=== PATIENT | male | born 1960 | race Two or more races ===

== ENCOUNTER → 2023-12-16 | Outpatient (REF) | payer OTHER | LOC: M SMT 12:19 | PROVIDERS: ATTEND Urology | DX: C61 Malignant neoplasm of prostate (principal); R97.20 Elevated prostate specific antigen [PSA]; N42.89 Other specified disorders of prostate; Z88.8 Allergy status to other drugs, medicaments and biological substances; Z79.899 Other long term (current) drug therapy; Z90.81 Acquired absence of spleen; Z80.42 Family history of malignant neoplasm of prostate ==

== ENCOUNTER 2024-06-09 10:03 | Day surgery (SDC) | payer MEDICARE, OTHER ==
[~2024-06-09] VITALS: Ht 167.6 cm; Wt 85.3 kg
[2024-06-09] VITALS (7 sets, daily range): BP systolic 120–133; BP diastolic 74–84; TEMP 97.8–98.8; O2SAT 94–98
[~2024-06-09 10:03] MED LIST: ACETAMINOPHEN 1000MG/100ML IV BAG As Ordered ONE; AMLO10TA PO; COLA100C5 PO; HYDROmorphone HCL 2MG/ML 1ML VIAL As Ordered ONE; IBUP-1022 PO; LIDOCAINE 2% 100MG/5ML SDV (FOR ANES.) As Ordered ONE; MIDAZOLAM INJ 2MG/2ML VIAL As Ordered ONE; ONDANSETRON 4MG 2ML VIAL As Ordered ONE; ROCURONIUM BROMIDE 50MG/5ML VIAL As Ordered ONE; SUGAMMADEX SODIUM 500 MG/5 ML VIAL (BRIDION) As Ordered ONE; dexmedeTOMIDine (4MCG/ML)200MCG/50ML BTL (PRECEDEX) As Ordered ONE; fentaNYL 100 MCG/2 ML INJECTION As Ordered ONE; propofoL 200 MG/20 ML VIAL As Ordered ONE
[2024-06-09] MEDS ORDERED: B-12100010 PO (10:43)
[2024-06-09] MEDS ORDERED: OMEP-173 PO (10:43)
[2024-06-09] MEDS ORDERED: LIDOCAINE 1% SDV 5ML VIAL SC PRN (10:45)
[2024-06-09] MEDS ORDERED: HOME MED LIST COMPLETE! XX SCH (11:00)
[2024-06-09] MEDS: LR 1,000 ML IV SCH ×2 (11:19→15:45)
[2024-06-09] MEDS: HEPARIN SOD (PORCINE) 5000UNITS/ML 1ML VIAL/SYRINGE As Ordered ONE (11:39)
[2024-06-09] MEDS ORDERED: ONDANSETRON 4MG 2ML VIAL IV PRN ×2 (11:50→15:45)
[2024-06-09] MEDS: NS (Normal Saline) 0.9% 500 ML IV SCH (11:50)
[2024-06-09] MEDS ORDERED: ACETAMINOPHEN 325 MG TAB PO PRN (11:50)
[2024-06-09] MEDS: ceFAZolin SOD 2 GM in IV 1 EA IV ONE (12:00)
[2024-06-09] MEDS: HEPARIN SOD (PORCINE) 5000UNITS/ML 1ML VIAL/SYRINGE SQ ONE (12:02)
[2024-06-09] MEDS ORDERED: GLYCOPYRROLATE INJ 0.2 MG/ML 2 ML VIAL As Ordered ONE (12:37)
[2024-06-09] MEDS ORDERED: ePHEDrine SULFATE 25 MG/5 ML(5MG/ML) SYRINGE As Ordered ONE (13:06)
[2024-06-09] MEDS ORDERED: oxyCODONE 5MG TAB PO PRN (15:45)
[2024-06-09] MEDS ORDERED: fentaNYL 100 MCG/2 ML INJECTION IV PRN (15:45)
[2024-06-09] MEDS: LIDOCAINE 1% SDV 30ML VIAL As Ordered ONE (15:53)
[2024-06-09 17:18] LABS: HEMATOCRIT 39.4 % (42.0-52.0); MEAN CORPUSCULAR HEMOGLOBIN 34.8 pg (27.0-33.0); MEAN CORPUSCULAR HGB CONC 35.5 g/dl (32.0-36.5); PLATELET COUNT, AUTOMATED 264 10^3/uL (150-450); RED BLOOD COUNT 4.02 10^6/uL (4.30-6.10); WHITE BLOOD COUNT 11.8 10^3/uL (4.0-10.0)
[2024-06-09 17:33] LABS: BLOOD UREA NITROGEN 21 MG/DL (9-23); CALCIUM LEVEL 8.4 MG/DL (8.3-10.6); CARBON DIOXIDE LEVEL 27 MMOL/L (20-31); CHLORIDE LEVEL 106 MMOL/L (98-107); CREATININE FOR GFR 0.71 MG/DL (0.70-1.30); GLOMERULAR FILTRATION RATE > 60.0 (>49); GLUCOSE, FASTING 136 MG/DL (74-106); POTASSIUM SERUM 4.2 MMOL/L (3.5-5.1); SODIUM LEVEL 143 MMOL/L (136-145)
[2024-06-09] MEDS: PERCOCET 5MG/325MG TAB PO PRN (17:55)
[2024-06-09] MEDS: OMEPRAZOLE 20MG CAP PO SCH (20:14)
[2024-06-09] MEDS: DOCUSATE SODIUM 100MG CAPSULE PO SCH (20:14)
[2024-06-09] MEDS: ceFAZolin SOD 1 GM in DEXTROSE 5% (D5W) ADV/MINI-BAG 50 ML IV SCH (20:15)
[2024-06-09] MEDS: HEPARIN SOD (PORCINE) 5000UNITS/ML 1ML VIAL/SYRINGE SC SCH (21:24)
[2024-06-10 02:20] VITALS: BP 123/79; TEMP 98.4; O2SAT 95
[2024-06-10 05:59] LABS: HEMATOCRIT 35.9 % (42.0-52.0); HEMOGLOBIN 12.7 g/dl (13.5-17.5); MEAN CORPUSCULAR HEMOGLOBIN 34.9 pg (27.0-33.0); MEAN CORPUSCULAR HGB CONC 35.4 g/dl (32.0-36.5); MEAN CORPUSCULAR VOLUME 98.6 fl (80.0-96.0); PLATELET COUNT, AUTOMATED 242 10^3/uL (150-450); RED BLOOD COUNT 3.64 10^6/uL (4.30-6.10); WHITE BLOOD COUNT 9.4 10^3/uL (4.0-10.0)
[2024-06-10 06:20] VITALS: BP 127/79; TEMP 98.8; O2SAT 95
[2024-06-10 06:24] LABS: BLOOD UREA NITROGEN 14 MG/DL (9-23); CALCIUM LEVEL 8.1 MG/DL (8.3-10.6); CARBON DIOXIDE LEVEL 27 MMOL/L (20-31); CHLORIDE LEVEL 106 MMOL/L (98-107); GLOMERULAR FILTRATION RATE > 60.0 (>49); GLUCOSE, FASTING 118 MG/DL (74-106); POTASSIUM SERUM 3.6 MMOL/L (3.5-5.1); SODIUM LEVEL 142 MMOL/L (136-145)
[2024-06-10] MEDS: PERCOCET 5MG/325MG TAB PO PRN (06:35)
[2024-06-10] MEDS ORDERED: PERCOCET PO (08:07)
[2024-06-10] MEDS ORDERED: CIPR-249 PO (08:07)
[2024-06-10 08:49] VITALS: BP 135/64
[2024-06-10 10:20] VITALS: BP 121/77; TEMP 98.2; O2SAT 93
== END 2024-06-10 11:40 | disposition home or self-care (01) ==
LOC: M SDC 10:03 → UNDOADMIN 10:03 → M OR 10:03 → EDSTATUS 12:30 → M MS5PR 17:20 → M OR 17:20 → M MS5PR 17:20 → M SDC 06-10 11:40 → UNDODISIN 06-10 11:40
PROVIDERS: ATTEND Urology
DX: C61 Malignant neoplasm of prostate (principal); G47.9 Sleep disorder, unspecified; I10 Essential (primary) hypertension; K21.9 Gastro-esophageal reflux disease without esophagitis; Z79.899 Other long term (current) drug therapy
CPT/HCPCS: 36415; 38571; 55866; 80048; 85027; 86850; 86900; 86901; 88305; 88309; J0131; J0665; J0690; J1100; J1171; J1596; J2250; J2405; J3010